=== PATIENT | female | born 1970 | race Caucasian/White ===

== ENCOUNTER → 2017-05-11 16:17 | Outpatient (CLI) | payer OTHER ==
[~2017-05-11] VITALS: Ht 152.4 cm; Wt 56.7 kg
[~2017-05-11 16:17] MED LIST: CARAFATE1 G PO; INTESTINEX1 CAP PO; MEDROL4 MG PO; OMEPRAZOLE10 MG PO; PEPCID40 MG PO; PHENERGAN25 MG PO; VISTARIL50 MG PO; ZANTAC300 MG PO; ZITHROMAX500 MG PO
== END | disposition home or self-care (01) ==
LOC: PPHC 16:17
DX: M54.5 Low back pain (principal)

== ENCOUNTER 2017-06-11 20:50 | Emergency (ER) | payer OTHER ==
[~2017-06-11] VITALS: Ht 170.2 cm; Wt 54.4 kg
[2017-06-11] MEDS ORDERED: PAXIL40 MG (21:16)
[2017-06-11] MEDS ORDERED: XANAX1 MG (21:16)
== END 2017-06-11 22:27 | disposition home or self-care (01) ==
LOC: ER 20:50
DX: M94.0 Chondrocostal junction syndrome [Tietze] (principal); M51.34 Other intervertebral disc degeneration, thoracic region

== ENCOUNTER → 2017-07-16 | Emergency (ER) | payer OTHER ==
[~2017-07-16] VITALS: Ht 170.2 cm; Wt 54.4 kg
[~2017-07-16] MED LIST changes: +INTESTINEX680 M1 PO; +PAXIL40 MG; +XANAX1 MG; +ZOFRAN ODT4 MG PO
== END | disposition home or self-care (01) ==
LOC: ER 23:24
DX: K52.9 Noninfective gastroenteritis and colitis, unspecified (principal)

== ENCOUNTER → 2017-07-31 | Emergency (ER) | payer OTHER ==
[~2017-07-31] VITALS: Ht 170.2 cm; Wt 54.4 kg
[~2017-07-31] MED LIST changes: +VISTARIL25 MG PO
== END | disposition home or self-care (01) ==
LOC: ER 18:41
DX: K29.60 Other gastritis without bleeding (principal)

== ENCOUNTER → 2017-09-13 | Emergency (ER) | payer OTHER ==
[~2017-09-13] VITALS: Ht 170.2 cm; Wt 54.4 kg
== END | disposition home or self-care (01) ==
LOC: ER 19:15
DX: M62.830 Muscle spasm of back (principal); M54.2 Cervicalgia